=== PATIENT | male | born 1995 | race African-American/Black ===

== ENCOUNTER → 2019-10-27 | Outpatient (CLI) | payer OTHER | END | disposition home or self-care (01) | LOC: Rad HDHVI 14:41 | PROVIDERS: ATTEND Internal Medicine | DX: I50.9 Heart failure, unspecified (principal); I40.1 Isolated myocarditis; I42.9 Cardiomyopathy, unspecified | CPT/HCPCS: 93306 ==

== ENCOUNTER 2019-11-15 09:33 | Emergency (ER) | payer OTHER ==
[~2019-11-15] VITALS: Ht 185.4 cm; Wt 76.2 kg
[2019-11-15] MEDS ORDERED: SODIUM CHLORIDE 0.9% 1,000 ML IV ONE (09:50)
[2019-11-15] MEDS ORDERED: ASPirin 81 mg TAB PO ONE (10:00)
[2019-11-15 10:06] VITALS: BP 123/82
[2019-11-15 10:21] LABS: Basophils # (auto) 0 uL; Basophils % (auto) 0.5 % (0.0-2.0); Eosinophils # (auto) 0 uL; Eosinophils % (auto) 0.3 % (0.0-7.0); Hematocrit 41.7 % (41.0-53.0); Hemoglobin 14.1 g/dL (13.5-17.5); Lymphocytes # (auto) 1.8 uL; Mean Corpuscular Hemoglobin 30.6 pg (28.0-32.0); Mean Corpuscular Hgb Conc. 33.8 g/dL (32.0-36.0); Mean Corpuscular Volume 90.5 fL (80.0-100.0); Monocytes # (auto) 1.5 uL; Monocytes % (auto) 17.9 % (0.0-12.0); Neutrophils % (auto) 59.3 % (37.0-80.0); Platelet Count (auto) 206 10^3/uL (140-450); Red Blood Cells 4.61 10^6/uL (4.5-5.90); Red Cell Distribution Width 14.2 % (11.8-14.3); White Blood Cell 8.4 10^3/uL (4.4-10.8)
[2019-11-15 10:30] LABS: Albumin 3.6 g/dL (3.4-5.0); Anion Gap 4 (5-15); Blood Urea Nitrogen 8 mg/dL (7-18); Calcium 9.1 mg/dL (8.5-10.1); Carbon Dioxide 29 mmol/L (21-32); Chloride 105 mmol/L (98-107); Glucose 80 mg/dL (74-106); Sodium 138 mmol/L (136-145)
[2019-11-15 10:36] LABS: Alanine Aminotransferase 25 U/L (16-61); Alkaline Phosphatase 85 U/L (45-117); Aspartate Aminotransferase 14 U/L (15-37); BUN/Creatinine Ratio 8.9; GFR African American 136 mL/min; GFR Non-African American 112 mL/min; Total Protein 7.4 g/dL (6.4-8.2)
[2019-11-15 11:20] LABS: Alcohol, Urine < 3.0 mg/dL (0-5); Amphetamine Screen, Urine NEGATIVE (NEGATIVE); Barbiturate Scree,Urine NEGATIVE (NEGATIVE); Benzodiazephine Screen, Urine NEGATIVE (NEGATIVE); Cannabinoid Screen, Urine NEGATIVE (NEGATIVE); Cocaine Screen, Urine NEGATIVE (NEGATIVE); Opiate Scree,Urine NEGATIVE (NEGATIVE); Phencyclidine Screen, Urine NEGATIVE (NEGATIVE)
== END 2019-11-15 11:22 | disposition home or self-care (01) ==
LOC: ER 09:33
DX: I50.9 Heart failure, unspecified (principal); F41.9 Anxiety disorder, unspecified; I25.2 Old myocardial infarction
CPT/HCPCS: 36415; 71045; 80053; 80307; 84484; 85025; 93005; 99285; J7030

== ENCOUNTER 2019-11-29 20:23 | Inpatient (IN) | payer OTHER, MEDICAID ==
[~2019-11-29] VITALS: Ht 185.4 cm; Wt 73.7 kg
[2019-11-29 21:08] LABS: Eosinophils # (auto) 0 uL; Lymphocytes # (auto) 1.4 uL
[2019-11-29 21:10] LABS: Basophils # (auto) 0.1 uL; Basophils % (auto) 0.4 % (0.0-2.0); Eosinophils % (auto) 0.2 % (0.0-7.0); Hematocrit 37.7 % (41.0-53.0); Hemoglobin 12.9 g/dL (13.5-17.5); Lymphocytes % (auto) 10.2 % (10.0-50.0); Mean Corpuscular Hemoglobin 30.7 pg (28.0-32.0); Mean Corpuscular Hgb Conc. 34.2 g/dL (32.0-36.0); Mean Corpuscular Volume 89.8 fL (80.0-100.0); Monocytes # (auto) 1.4 uL; Monocytes % (auto) 10.5 % (0.0-12.0); Neutrophils # (auto) 10.6 uL; Neutrophils % (auto) 78.7 % (37.0-80.0); Platelet Count (auto) 465 10^3/uL (140-450); Red Cell Distribution Width 14.4 % (11.8-14.3); White Blood Cell 13.5 10^3/uL (4.4-10.8)
[2019-11-29] MEDS ORDERED: MORPHINE SULFATE 4 MG/ML SYR/VIAL IV ONE (21:15)
[2019-11-29] MEDS ORDERED: ONDANSETRON HCL 4 MG/2 ML VIAL IV ONE (21:15)
[2019-11-29 21:24] LABS: Albumin 2.9 g/dL (3.4-5.0); BUN/Creatinine Ratio 16.1; Calcium 9.3 mg/dL (8.5-10.1); Potassium 4.3 mmol/L (3.5-5.1)
[2019-11-29 21:28] LABS: Bilirubin, Total 0.3 mg/dL (0.2-1.0); Total Protein 8.3 g/dL (6.4-8.2)
[2019-11-29] MEDS ORDERED: ALBUTEROL SULF 2.5 MG/0.5ML(0.5%) NEB SOLN NEB ONE (21:45)
[2019-11-29] MEDS ORDERED: IPRATROPIUM BROM 0.5 MG/2.5ML INH SOL NEB ONE (21:45)
[2019-11-29 22:20] LABS: Urine Bacteria NONE SEEN /hpf (None Seen); Urine Blood Negative /uL (Negative); Urine Mucus FEW (None Seen); Urine Specific Gravity 1.043 (1.001-1.035); Urine WBC 2 /hpf (0 - 3)
[2019-11-29] MEDS ORDERED: HYDROmorphone HCL 2 MG/ML VL IV ONE (23:00)
[2019-11-30] VITALS (74 sets, daily range): BP systolic 82–147; BP diastolic 43–88
[2019-11-30] MEDS ORDERED: PROPOFOL 100 ML IV ONE (03:31)
[2019-11-30] MEDS: PROPOFOL 100 ML IV SCH ×3 (03:32→17:49)
[2019-11-30] MEDS: MIDAZOLAM DRIP 50 mg/50mL 50 ML IV SCH ×4 (03:43→22:00)
[2019-11-30] MEDS ORDERED: MIDAZOLAM DRIP 50 mg/50mL 50 ML IV ONE (03:43)
[2019-11-30] MEDS ORDERED: ALBUTEROL SULF 2.5 MG/0.5ML(0.5%) NEB SOLN NEB PRN (04:00)
[2019-11-30] MEDS ORDERED: IPRATROPIUM BROM 0.5 MG/2.5ML INH SOL NEB PRN (04:00)
[2019-11-30] MEDS ORDERED: ONDANSETRON HCL 4 MG/2 ML VIAL IV PRN (04:30)
[2019-11-30] MEDS ORDERED: MORPHINE SULFATE 4 MG/ML SYR/VIAL IV PRN (04:30)
[2019-11-30] MEDS ORDERED: DOCUSATE SOD 100 MG CAP PO PRN (04:30)
[2019-11-30] MEDS ORDERED: ETOMIDATE (2MG/ML) 20ML VIAL IV ONE (06:00)
[2019-11-30] MEDS: NAPROXEN 500 MG TAB NG SCH ×2 (06:00→13:01)
[2019-11-30] MEDS ORDERED: SUCCINYLCHOLINE CHLORIDE 20 MG/ML 10ML VIAL IV ONE (06:00)
[2019-11-30] MEDS: D5W/SOD CHL 0.45% 1,000 ML IV SCH ×2 (07:04→21:09)
--- NOTE | 2019-11-30 08:00 | NUR ---
Admit to ICU from ER on vent FRED ALadmitted to ICU via kole on property assessment monitor, intubated and being bagged by Respiratory Therapist. Patient transfered to bed 110, connected to mechanical ventilator by therapist, CASEY at bedside. Patient connected to ICU monitoring, weighed by bedscale, oriented to Hilda Hill primary RN, unit, Patiently lightly sedated on versed and prop. Lines: Right forearm 20 g infusing propofol Left ac 18g infusing fluids Left Ij in place pending cxr results for placement verification. Pupils equal and reactive Positive gag reflex Tolerating ventiltor well, unlabored even breaths, lungs clear. Abd soft. Active bowel sounds Soliz draining yellow urine with sediment noted. Skin intact, Optifoam in place as prevenative. Scds in place. See physical assessment/ interventions.
--- NOTE | 2019-11-30 08:00 | NUR ---
Respiratory note: PT TRANSPORTED TO ICU, VENTILATED VIA AMBU BAG, TRANSPORT WENT WITHOUT INCIDENT. PT PLACED BACK ON VENT #V9, PLUGGED INTO A RED OUTLET AND PROPER O2 SOURCE WITH AMBU BAG/MASK AT BEDSIDE. ALARMS VERIFIED AND AUDIBLE. NO VENT CHANGES ORDERED AT THIS TIME. RN AT BEDSIDE.
[2019-11-30 09:18] LABS: Basophils # (auto) 0 uL; Basophils % (auto) 0.2 % (0.0-2.0); Eosinophils # (auto) 0 uL; Eosinophils % (auto) 0.2 % (0.0-7.0); Hematocrit 32.4 % (41.0-53.0); Hemoglobin 10.6 g/dL (13.5-17.5); Lymphocytes # (auto) 1.6 uL; Lymphocytes % (auto) 12.4 % (10.0-50.0); Mean Corpuscular Hemoglobin 29.1 pg (28.0-32.0); Mean Corpuscular Hgb Conc. 32.8 g/dL (32.0-36.0); Mean Corpuscular Volume 88.8 fL (80.0-100.0); Monocytes # (auto) 1.4 uL; Monocytes % (auto) 10.7 % (0.0-12.0); Neutrophils % (auto) 76.5 % (37.0-80.0); Platelet Count (auto) 424 10^3/uL (140-450); Red Blood Cells 3.65 10^6/uL (4.5-5.90); Red Cell Distribution Width 14.9 % (11.8-14.3); White Blood Cell 13.1 10^3/uL (4.4-10.8)
--- NOTE | 2019-11-30 09:20 | NUR ---
CXR REPORT - Report stating "Nonspecific lucency at the right supraclavicular soft tissues may be technical, though subcutaneous emphysema can have a similar appearance". Palpation done throughout upper and lateral chest. No subcutaneous emphysema noted. Will continue to monitor.
[2019-11-30 09:29] LABS: Calcium 9.1 mg/dL (8.5-10.1)
--- NOTE | 2019-11-30 09:45 | NUR ---
DIRECTOR GOVERNMENT CONSULT/ CENTRAL LINE UPDATE DIRECTOR GOVERNMENT AWARE OF CONSULT. DR. SHAH UPDATED ON PATIENTS STATUS AND CXR RESULTS WITH CENTRAL LINE PLACEMENT. STATING HE WILL BE IN SHORTLY.
[2019-11-30] MEDS: COLCHICINE 0.6 MG CAP NG SCH ×2 (10:00→22:00)
--- NOTE | 2019-11-30 10:38 | NUR ---
FOOTWEAR PRODUCTION MACHINE OPERATOR AT BEDSIDE DR. KELLY AT BEDSIDE. UPDATED ON PATIENTS STATUS. NEW ORDERS IN PLACE.
[2019-11-30] MEDS ORDERED: SODIUM CHLORIDE 0.9% 500 ML IV ONE (10:45)
--- NOTE | 2019-11-30 10:45 | NUR ---
WOUND CARE NOTE: IN TO SEE PATIENT AT THIS TIME PER WOUND CARE CONSULT REQUEST. PATIENT ADDED TO SKIN INTEGRITY MONITORING D/T LOW RAFA SCORE/INTUBATION STATUS. PATIENT RECENTLY ADMITTED TO [facility] WITH DIAGNOSIS OF SUSPECTED RECURRENT MYOCARDITIS, PERICARDITIS, ACUTE RESPIRATORY FAILURE. CURRENT RAFA SCORE IS 10. SKIN/WOUND CARE PLAN IMPLEMENTED. PATIENT IS WOUND FREE AT THIS TIME. RECOMMEND: FREQUENT TURN SCHEDULE Q 2 HOURS, PRN CONDITION PERMITS,WITH PRESSURE REDISTRIBUTION USING PILLOWS/WEDGES, BID/PRN APPLICATION WITH MOISTURE BARRIER CREAM, OPTIFOAM GENTLE SACRAL DRESSING, DIETARY CONSULT FOR LOW RAFA, SKIN/WOUND CARE PLAN, CONTINUED MONITORING BY WOUND CARE TEAM.
--- NOTE | 2019-11-30 10:55 | NUR ---
head of academic technology at bedside.
--- NOTE | 2019-11-30 11:05 | NUR ---
Colcrys not available in liquid form. Per Sarah Rx, ok to open capsule and administer via OG.
[2019-11-30] MEDS: PANTOPRAZOLE 40 MG/10 ML VIAL INJ IV SCH ×2 (11:08→22:00)
[2019-11-30] MEDS: levoFLOXacin 750MG 150 ML IV SCH (11:08)
[2019-11-30] MEDS: VASOPRESSIN 50 UNITS in D5W 5% 247.5 ML IV SCH (12:30)
[2019-11-30] MEDS ORDERED: ENOXAPARIN SOD 40 MG/0.4 ML SYRINGE SC ONE (13:00)
[2019-11-30] MEDS ORDERED: FUROSEMIDE 20 MG/2 ML VIAL IV ONE (13:15)
--- NOTE | 2019-11-30 13:46 | NUR ---
CENTRAL LINE PLACED BY MD AT BEDSIDE. CXR PENDING. LEFT IJ CENTRAL LINE REMOVED. PRESSURE APPLIED. PT TOLERATED WELL.
[2019-11-30 13:51] LABS: Basophils # (auto) 0 uL; Basophils % (auto) 0.2 % (0.0-2.0); Eosinophils # (auto) 0 uL; Eosinophils % (auto) 0.4 % (0.0-7.0); Hematocrit 29.9 % (41.0-53.0); Hemoglobin 10.1 g/dL (13.5-17.5); Lymphocytes # (auto) 1.7 uL; Lymphocytes % (auto) 14.7 % (10.0-50.0); Mean Corpuscular Hemoglobin 29.9 pg (28.0-32.0); Mean Corpuscular Hgb Conc. 33.8 g/dL (32.0-36.0); Mean Corpuscular Volume 88.4 fL (80.0-100.0); Monocytes # (auto) 1.4 uL; Neutrophils # (auto) 8.6 uL; Neutrophils % (auto) 72.7 % (37.0-80.0); Nucleated Red Blood Cells % 0.1 %; Platelet Count (auto) 387 10^3/uL (140-450); Red Blood Cells 3.39 10^6/uL (4.5-5.90); Red Cell Distribution Width 14.4 % (11.8-14.3); White Blood Cell 11.8 10^3/uL (4.4-10.8)
--- NOTE | 2019-11-30 14:00 | NUR ---
HOSPITALIST AT BEDSIDE MD UPDATED ON PATIENTS STATUS. NEW ORDERS IN PLACE.
[2019-11-30 14:23] LABS: Amphetamine Screen, Urine NEGATIVE (NEGATIVE); Barbiturate Scree,Urine NEGATIVE (NEGATIVE); Benzodiazephine Screen, Urine POSITIVE (NEGATIVE); Cannabinoid Screen, Urine NEGATIVE (NEGATIVE); Cocaine Screen, Urine NEGATIVE (NEGATIVE); Opiate Scree,Urine POSITIVE (NEGATIVE); Phencyclidine Screen, Urine NEGATIVE (NEGATIVE)
[2019-11-30] MEDS: ALBUTEROL SULF 2.5 MG/0.5ML(0.5%) NEB SOLN NEB SCH ×3 (14:26→22:12)
[2019-11-30] MEDS: IPRATROPIUM BROM 0.5 MG/2.5ML INH SOL NEB SCH ×3 (14:26→22:12)
[2019-11-30] MEDS ORDERED: methylPREDNISolone SOD SUCC 125 MG/2 ML VL IV ONE (15:30)
--- NOTE | 2019-11-30 17:00 | NUR ---
ELIMINATION REPORTED PER IVAN SCOTT, PATIENTS LAST BM WAS BEFORE ADMISSION.
[2019-11-30] MEDS: FUROSEMIDE 20 MG/2 ML VIAL IV SCH (17:48)
--- NOTE | 2019-11-30 19:20 | NUR ---
Report given to noc nurse Updated on plan of care. Patient continues vented/ sedated/ pressor. VSS.
--- NOTE | 2019-11-30 19:56 | NUR ---
ADMITTED WITH CHEST PAIN AND DYSPNEA. POSITIVE TROPONINS. INTUBATED IN ER. SEDATION WITH VERSED AND DIPRIVAN. HYPOTENSION: VASOPRESSIN LOW DOSE. NSR - ST WITHOUT ECTOPY. ETT TO VENTILATOR. OVERBREATHING THE VENTILATOR. MAINTENANCE FLUID AT 60CC/HR. GLUCERNA STARTED AT 20CC/HR. THROUGH AN ORAL NGT. RIJ TRIPLE LUMEN CATHETER WITH CLEAN DRY DRESSING. SOLUMEDROL BEING GIVEN FOR HIS PERICARDITIS. WOUND FREE.
[2019-11-30] MEDS: Glucerna 1.2 Cal 1Liter BOTTLE GT SCH (20:10)
[2019-11-30] MEDS: CARVEDILOL 3.125 MG TAB NG SCH (22:00)
[2019-11-30] MEDS: methylPREDNISolone SOD SUCC 40 MG/ML VL IV SCH (22:00)
--- NOTE | 2019-11-30 22:00 | NUR ---
REPOSITIONED TO BACK. ORAL: LARGE AMOUNT OF CLEAR SECRETIONS. ORAL CARE DONE. CENTRAL LINE DRESSING CHANGED. SITE CLEANED WITH CHLOROPREP AND REDRESSED. OVERBREATHING THE VENTILATOR. NOTHING SUCTIONED FROM THE ETT. WILL OPEN EYES OCCASIONALLY. ALL PULSES ARE PALPABLE. NSR WITHOUT ECTOPY.
[2019-12-01] VITALS (109 sets, daily range): BP systolic 88–122; BP diastolic 40–83
--- NOTE | 2019-12-01 | NUR ---
WAKES UP BRIEFLY AND GOES BACK TO SLEEP. ORAL CARE DONE. NOTHING SUCTIONED FROM THE ETT. LUNGS CLEAR. 15CC RESIDUAL FROM THE OGT. ABDOMEN SOFT. COLLINS IN PLACE DRAINING YELLOW LIQUID WITH A LARGE AMOUNT OF CLOUDY WHITE SEDIMENT. NO EDEMA. ALL PULSES PALPABLE. NSR WITHOUT ECTOPY. COREG DID NOT CHANGE THE HEART RATE OR BP VERY MUCH.
--- NOTE | 2019-12-01 02:00 | NUR ---
NO NEW CHANGES. SUCTIONED THE ETT. NEVER GET ANY RETURN OF SECRETIONS. ORAL CARE DONE. URINE REMAINS EXTREMELY CLOUDY.
[2019-12-01] MEDS: ALBUTEROL SULF 2.5 MG/0.5ML(0.5%) NEB SOLN NEB SCH ×6 (02:07→22:48)
[2019-12-01] MEDS: IPRATROPIUM BROM 0.5 MG/2.5ML INH SOL NEB SCH ×6 (02:07→22:47)
--- NOTE | 2019-12-01 02:30 | NUR ---
CHG BATH. COMPLETE LINEN CHANGE
[2019-12-01 03:54] LABS: Basophils # (auto) 0 uL; Basophils % (auto) 0.2 % (0.0-2.0); Eosinophils # (auto) 0 uL; Hematocrit 29.5 % (41.0-53.0); Hemoglobin 10.2 g/dL (13.5-17.5); Lymphocytes # (auto) 0.7 uL; Lymphocytes % (auto) 7.4 % (10.0-50.0); Mean Corpuscular Hemoglobin 30.6 pg (28.0-32.0); Mean Corpuscular Hgb Conc. 34.7 g/dL (32.0-36.0); Mean Corpuscular Volume 88.1 fL (80.0-100.0); Monocytes # (auto) 0.2 uL; Neutrophils # (auto) 8.7 uL; Neutrophils % (auto) 90.4 % (37.0-80.0); Platelet Count (auto) 371 10^3/uL (140-450); Red Blood Cells 3.35 10^6/uL (4.5-5.90); Red Cell Distribution Width 14.7 % (11.8-14.3); White Blood Cell 9.6 10^3/uL (4.4-10.8)
[2019-12-01] MEDS: MIDAZOLAM DRIP 50 mg/50mL 50 ML IV SCH ×2 (04:00→16:14)
--- NOTE | 2019-12-01 04:00 | NUR ---
ETT SUCTIONED, NO SECRETIONS. ORAL CARE DONE. REPOSITIONED. NSR WITHOUT ECTOPY. SBP STABLE. DECREASING VERSED.
[2019-12-01 04:18] LABS: Albumin 2.4 g/dL (3.4-5.0); Anion Gap 6 (5-15); Blood Urea Nitrogen 18 mg/dL (7-18); Calcium 9.6 mg/dL (8.5-10.1); Carbon Dioxide 29 mmol/L (21-32); Chloride 99 mmol/L (98-107); Glucose 164 mg/dL (74-106); Magnesium 1.9 mg/dL (1.6-2.6); Potassium 4.5 mmol/L (3.5-5.1); Sodium 134 mmol/L (136-145)
[2019-12-01 04:21] LABS: INR 1.37 (0.9-1.15); Partial Thromboplastin Time 43.4 sec (23.64-32.05)
[2019-12-01 04:26] LABS: Alanine Aminotransferase 30 U/L (16-61); Alkaline Phosphatase 91 U/L (45-117); Aspartate Aminotransferase 26 U/L (15-37); BUN/Creatinine Ratio 20.5; Bilirubin, Total 0.2 mg/dL (0.2-1.0); Creatine Kinase IFCC 50 U/L (39-308); GFR African American 139 mL/min; GFR Non-African American 115 mL/min; Phosphorus 4.4 mg/dL (2.5-4.90); Total Protein 7.4 g/dL (6.4-8.2)
[2019-12-01 04:37] LABS: CRP High Sensitivity > 19 mg/dL (< 0.3)
[2019-12-01] MEDS: methylPREDNISolone SOD SUCC 40 MG/ML VL IV SCH ×2 (06:00→22:36)
[2019-12-01] MEDS: FUROSEMIDE 20 MG/2 ML VIAL IV SCH ×2 (06:00→18:00)
--- NOTE | 2019-12-01 06:52 | NUR ---
Respiratory note: RECEIVED PATIENT ON V9 ESPRIT VENT ORALLY INTUBATED WITH A 7.5 ETT SECURED VIA KENNETH AT THE 24CM MARKING AT THE LIP, AND MECHANICALLY VENTILATED WITH THE CHARTED SETTINGS. SPO2 100%, LUNG SOUNDS CLEAR T/O, SCANT AMOUNT OF THIN CLEAR SECRETIONS WHEN SUCTIONED. SKIN IS WARM/DRY TO THE TOUCH AND IS INTACT NEAR KENNETH SITE. THERE IS AN OGT IN PLACE AND SECURED TO THE TT, A TRIPLE LUMEN CENTRAL LINE IS PLACED IN THE RIGHT IJ; NO OTHER ADVANCE ACCESS LINES NOTED. THERE IS NO NOTED EDEMA T/O. NO NEW AM CXR TO ASSESS. PATIENT IS UNRESPONSIVE TO BOTH VERBAL/TACTILE STIMULI AND IS SEDATED ON VERSED AND PROPOFOL DRIPS. HE IS RESTING COMFORTABLY AND TOLERATING VENT WELL, NO CHANGES MADE. VENT PLUGGED INTO RED OUTLET AND ALL ALARMS ARE SET AND AUDIBLE. WILL CONTINUE TO ASSESS PATIENT WELL VENTILATOR FUNCTION. [employer] Everytime RUN INLINE.
[2019-12-01] MEDS: PANTOPRAZOLE 40 MG/10 ML VIAL INJ IV SCH ×2 (09:11→22:36)
[2019-12-01] MEDS: levoFLOXacin 750MG 150 ML IV SCH (09:11)
[2019-12-01] MEDS: ENOXAPARIN SOD 40 MG/0.4 ML SYRINGE SC SCH (09:11)
[2019-12-01] MEDS: VASOPRESSIN 50 UNITS in D5W 5% 247.5 ML IV SCH ×2 (09:12→20:00)
[2019-12-01] MEDS: CARVEDILOL 3.125 MG TAB NG SCH ×2 (09:12→22:37)
[2019-12-01] MEDS: COLCHICINE 0.6 MG CAP NG SCH ×2 (09:12→22:36)
[2019-12-01] MEDS: PROPOFOL 100 ML IV SCH ×4 (09:23→21:45)
[2019-12-01 09:56] LABS: Hepatitis B Surface Antigen Negative (Negative); Hepatitis C Antibody Negative (Negative)
--- NOTE | 2019-12-01 10:28 | NUR ---
PATIENT LIGHTLY- MODERATELY SEDATED. PT NOTED TO OPEN EYES AND MOVE EXTREMITIES DURING CARES. SEE EMAR. Addendum: 12/01/19 at 1031 by Hilda Hill RN Amended: Links added.
--- NOTE | 2019-12-01 11:57 | NUR ---
DR. KELLY AT BEDSIDE MD UPDATED ON PATIENTS STATUS. PER AWA ELLIOTT IN HIS PERSPECTIVE TO EXTUBATE PER PULMONARY.
--- NOTE | 2019-12-01 12:19 | NUR ---
NUTRITION ASSESSMENT NOTES Please refer to link notes of nutrition screen form filed under the intervention section of the plan of care for further details. Est. Energy Needs: 1092-4668 kcal (25-30 kcal/kg BW). Est. Protein Needs: 77-92 gms/day (1.0-1.2 gms/kg BW). Will continue to monitor pertinent labs and reassess nutrient need prn Addendum: 12/01/19 at [address] Amended: Links added.
[2019-12-01] MEDS ORDERED: Glucerna 1.2 Cal 1Liter BOTTLE GT SCH (13:00)
--- NOTE | 2019-12-01 13:00 | NUR ---
FAMILY AT BEDSIDE MOTHER OF TYLER LOVE AT BEDSIDE UPDATED ON PATIENTS STATUS. QUESTIONS AND CONCERNS ADDRESSED.
--- NOTE | 2019-12-01 13:15 | NUR ---
OUTPATIENT COOKER CASING DR. ROSARIO CONTACTED FAMILY AT BEDSIDE REQUESTING DR. ROSARIO TO BE AWARE OF ADMISSION. MSG LEFT WITH OFFICE.
--- NOTE | 2019-12-01 14:20 | NUR ---
RESIDENTIAL PROGRAM WORKER AZIZA MAC AT BEDSIDE. SEE NEW ORDERS.
--- NOTE | 2019-12-01 15:00 | NUR ---
COMMUNICATION/ DR. RASHID MIKE AT BEDSIDE CLARIFYING INSURANCE PROVIDER. DR. TURCIOS AWARE. DR. MIKE TO SEE PATIENT AT THIS TIME.
--- NOTE | 2019-12-01 15:52 | NUR ---
TUBE FEEDINGS TOLERATED WELL. GLUCERNA INCREASED TO 50ML/HR VIA OG. NO GASTRIC RESIDUAL NOTED.
[2019-12-01] MEDS: ERTAPENEM SOD INJ 1 GM in SODIUM CHL 0.9% 50 ML IV SCH (16:15)
[2019-12-01] MEDS: Glucerna 1.2 Cal 1Liter BOTTLE GT SCH (16:16)
--- NOTE | 2019-12-01 17:07 | NUR ---
RESTLESS PATIENT MOVING UPPER EXTREMITIES WITH RR NOTED MIDS 30'S. SEDATION INCREASED FOR COMFORT PATIENT IS NOTED TO BECOME RESTLESS.
[2019-12-01] MEDS: MORPHINE SULF INJ 2 MG/ML SYRINGE 1ML IV PRN (17:17)
--- NOTE | 2019-12-01 17:17 | NUR ---
PAIN PATIENT OPENING EYES, MOVING UPPER EXT, VS CHANGES, RR CONTINUES IN 30'S, HR ST 110'S. PATIENT ASKED IF HE IS HAVING PAIN AND NODDED HEAD, FACIAL GRIMACING NOTED. PRN ADMINISTERED ORDERED.
[2019-12-01] MEDS ORDERED: DEXTROSE (50%) 50ML SYRG IV PRN (18:45)
--- NOTE | 2019-12-01 19:48 | NUR ---
ADMITTED ON 11/29/2019 WITH TACHYPNEA AND LOW O2 SATURATION IN ER. INTUBATED IN ER. ELEVATED TROPONINS. RECENT DIAGNOSIS OF MYOCARDITIS AT [facility]. NOTED ECHOCARDIOGRAM RESULT. COLLINS IN PLACE DRAINING CLEAR YELLOW LIQUID TO DOWN DRAIN BAG. RADHA. ORALLY INTUBATED. ETT TO VENTILATOR. ABDOMEN SOFT. NO BM SINCE ADMISSION DATE. NUTRITION: STARTED HIM ON GLUCERNA YESTERDAY. RATE IS NOW UP TO 50CC/HR. HAS A RIJ TRIPLE LUMEN CATHETER. SITE OF TLC SHOWS NO REDNESS OR DRNG. DISCONTINUED MAINTENANCE FLUIDS TODAY. INCREASED THE LASIX TO BID TODAY. CHANGED ANTIBIOTICS TODAY. MENTATION : MOVING IN BED, SLIGHTLY RESTLESS. INCREASED THE VERSED DRIP. SBP WAS 88 SYSTOLIC AFTER SEVERAL ATTEMPTS. RESUMED THE VASOPRESSIN.
[2019-12-01] MEDS: ACCU-CHEK COMFORT CURVE STRIP VI SCH (22:00)
[2019-12-01] MEDS: InsuLIN REG 1unit/0.01ml Soln (100units/ml) SC SCH (22:00)
[2019-12-01] MEDS ORDERED: ALLOPURINOL 100 MG TAB PO SCH (22:00)
--- NOTE | 2019-12-01 22:00 | NUR ---
TYLER, THE LIVE IN FRIEND, STATED THAT THE LAST TIME HE WAS ON [place], HE HAD SEVERAL NIGHTMARES AND WAS CONFUSED FOR SEVERAL DAYS. IT'S HER REQUEST THAT WE NOT UTILIZE F[place]. DR LANCASTER WAS HERE. NO NEW ORDERS.ORAL CARE. SUCTIONED ETT. COLLINS DRAINING CLEAR MICHELLE LIQUID.
[2019-12-01] MEDS: ALLOPURINOL 100 MG TAB NG SCH (22:37)
[2019-12-02] VITALS (68 sets, daily range): BP systolic 101–140; BP diastolic 51–80
--- NOTE | 2019-12-02 | NUR ---
VSS. ETT TO VENTILATOR. NO NEW CHANGES. RR GREATER THAN THAN AC RATE OF 14. NSR WITHOUT ECTOPY. ORAL CARE DONE.
[2019-12-02] MEDS: ALBUTEROL SULF 2.5 MG/0.5ML(0.5%) NEB SOLN NEB SCH ×6 (02:12→22:22)
[2019-12-02] MEDS: IPRATROPIUM BROM 0.5 MG/2.5ML INH SOL NEB SCH ×6 (02:12→22:22)
--- NOTE | 2019-12-02 03:24 | NUR ---
AM LABS DRAWN
--- NOTE | 2019-12-02 04:00 | NUR ---
CHG BATH. COMPLETE LINEN CHANGE. NO CHANGE IN SYMPTOMS, SKIN, HEART RHYTHM OR BLOOD PRESSURE.
[2019-12-02 04:04] LABS: Basophils # (auto) 0 10 ^3/uL (0-0.2); Basophils % (auto) 0.1 % (0.0-2.0); Eosinophils # (auto) 0 10 ^3/uL (0-0.8); Hemoglobin 10.7 g/dL (13.5-17.5); Lymphocytes # (auto) 0.9 10 ^3/uL (0.4-5.4); Lymphocytes % (auto) 4.5 % (10.0-50.0); Mean Corpuscular Hemoglobin 29.8 pg (28.0-32.0); Mean Corpuscular Hgb Conc. 33.5 g/dL (32.0-36.0); Mean Corpuscular Volume 88.8 fL (80.0-100.0); Monocytes # (auto) 1.3 10 ^3/uL (0-1.3); Monocytes % (auto) 6.7 % (0.0-12.0); Neutrophils % (auto) 88.7 % (37.0-80.0); Platelet Count (auto) 435 10^3/uL (140-450); Red Cell Distribution Width 15.2 % (11.8-14.3); White Blood Cell 19.2 10^3/uL (4.4-10.8)
[2019-12-02 04:23] LABS: BUN/Creatinine Ratio 28.7; Potassium 4.8 mmol/L (3.5-5.1)
[2019-12-02] MEDS: PROPOFOL 100 ML IV SCH (05:00)
[2019-12-02] MEDS: MIDAZOLAM DRIP 50 mg/50mL 50 ML IV SCH (05:00)
[2019-12-02] MEDS: FUROSEMIDE 20 MG/2 ML VIAL IV SCH ×2 (06:06→18:03)
[2019-12-02] MEDS: ACCU-CHEK COMFORT CURVE STRIP VI SCH ×4 (06:07→21:46)
[2019-12-02] MEDS: InsuLIN REG 1unit/0.01ml Soln (100units/ml) SC SCH ×4 (06:12→21:45)
--- NOTE | 2019-12-02 06:55 | NUR ---
Respiratory note: RECEIVED PATIENT ON V9 ESPRIT VENT ORALLY INTUBATED WITH A 7.5 ETT SECURED VIA KENNETH AT THE 24CM MARKING AT THE LIP, AND MECHANICALLY VENTILATED WITH THE CHARTED SETTINGS. SPO2 100%, LUNG SOUNDS CLEAR T/O, SCANT AMOUNT OF THIN CLEAR SECRETIONS WHEN SUCTIONED. SKIN IS WARM/DRY TO THE TOUCH AND IS INTACT NEAR KENNETH SITE. THERE IS AN OGT IN PLACE AND SECURED TO THE ETT, A TRIPLE LUMEN CENTRAL LINE IS PLACED IN THE RIGHT IJ; NO OTHER ADVANCE ACCESS LINES NOTED. THERE IS NO NOTED EDEMA T/O. NO NEW AM CXR TO ASSESS. PATIENT IS RESPONSIVE TO BOTH VERBAL/TACTILE STIMULI AND IS LIGHTLY SEDATED ON VERSED AND PROPOFOL DRIPS CPAP IS TO BE TRIALED TODAY. HE IS RESTING COMFORTABLY AND TOLERATING VENT WELL, NO CHANGES MADE. VENT PLUGGED INTO RED OUTLET AND ALL ALARMS ARE SET AND AUDIBLE. WILL CONTINUE TO ASSESS PATIENT WELL VENTILATOR FUNCTION. MED-NEB RUN INLINE. POC IS TO WEAN OFF ALL SEDATION AND CPAP. WILL COORDINATED WITH AM RN.
--- NOTE | 2019-12-02 09:00 | NUR ---
DR. LANCASTER UPDATED ON PT STATUS, RECEIVED CPAP ORDERS, RT MADE AWARE.
--- NOTE | 2019-12-02 09:30 | NUR ---
FAMILY AT THE BEDSIDE PTS GIRLFRIEND WAS UPDATED ON PT PLAN OF CARE, QUESTIONS AND CONCERNS WERE ADDRESSED
[2019-12-02] MEDS: ENOXAPARIN SOD 40 MG/0.4 ML SYRINGE SC SCH (09:55)
[2019-12-02] MEDS: PANTOPRAZOLE 40 MG/10 ML VIAL INJ IV SCH (09:55)
[2019-12-02] MEDS: methylPREDNISolone SOD SUCC 40 MG/ML VL IV SCH ×2 (09:56→21:49)
[2019-12-02] MEDS: COLCHICINE 0.6 MG CAP NG SCH ×2 (09:57→21:51)
[2019-12-02] MEDS: CARVEDILOL 3.125 MG TAB NG SCH ×2 (09:57→21:51)
[2019-12-02] MEDS: ALLOPURINOL 100 MG TAB NG SCH ×2 (09:57→21:50)
[2019-12-02] MEDS: ERTAPENEM SOD INJ 1 GM in SODIUM CHL 0.9% 50 ML IV SCH (09:58)
--- NOTE | 2019-12-02 10:59 | NUR ---
Respiratory note: PATIENT PLACED ON CPAP TRIAL AT THIS TIME HE IS AWAKE, ALERT, AND FOLLOWING COMMANDS. HE IS TOLERATING WELL AT THIS TIME WITH THE FOLLOWING SETTINGS: PS 7, PEEP 5 CURRENT VITALS: HR: 77 RR: 15 VT: 542 SPO2: 100% BP: 111/64 RN HILDA AWARE OF VENT CHANGE. WILL CONTINUE TO MONITOR PATIENT CLOSELY.
[2019-12-02] MEDS ORDERED: EPINEPHrine HCL 0.5 ML NEB NEB PRN (12:45)
--- NOTE | 2019-12-02 13:04 | NUR ---
Respiratory note: PATIENT EXTUBATED AT 1255 POST POSITIVE CPAP TRIAL AND PER DR. LANCASTER'S TELEPHONE ORDER. HE WAS PLACED ON 30% COOL AEROSOL MASK AND NO STRIDOR WAS HEARD. PATIENT SLIGHTLY TACHYPNEIC BREATHING 28 BPM, BUT SAYS HE DOES NOT FEEL SOB OF ANY DIFF BREATHING. WILL CONTINUE TO MONITOR PATIENT CLOSELY. AMRICARMEN STEVENS MADE AWARE OF EXTUBATION AND PATIENTS CURRENT CONDITION.
--- NOTE | 2019-12-02 14:30 | NUR ---
PT WAS PLACED ON 2L NC
--- NOTE | 2019-12-02 14:40 | NUR ---
DR. TURCIOS AT BEDSIDE Addendum: 12/02/19 at 1649 by MELINDA ZAVALA RN RN DR. TURCIOS AT [facility] ACTUAL TIME [id number]
--- NOTE | 2019-12-02 14:48 | NUR ---
ESTEFANIA BENEFITS MANAGER AT BEDSIDE RECEIVED ORDERS TO DOWNGRADE TO TELE
--- NOTE | 2019-12-02 16:00 | NUR ---
BLADDER TRAINING BLADDER TRAINING IN PROGRESS
--- NOTE | 2019-12-02 16:00 | NUR ---
PT ACTIVITY COMPLETED LINEN CHANGE, PT AMBULATED TO THE TOILET WITH ASSISTANCE
--- NOTE | 2019-12-02 17:32 | NUR ---
PT EXTUBATED PT WAS EXTUBATED ON 1254 BY RT CRUZITO PEARCE AT PT'S BEDSIDE Addendum: 12/02/19 at 1733 by MELINDA ZAVALA RN RN ACTUAL TIME 1255
--- NOTE | 2019-12-02 18:40 | NUR ---
PT URINATED AFTER REMOVAL OF COLLINS PT URINATED 500ML INTO URINAL AT 1840
--- NOTE | 2019-12-02 19:30 | NUR ---
Opening Shift Note Report received from day shift RN. Patient sitting up in bed watching TV. Alert and oriented times four. Full assessment done see interventions. Right IJ TLC, all ports patent. Pt is weak but able to turn self in bed. Ambulates to bathroom with assistance. Urinal at bedside. Nasal cannula in place at 2 lpm. saturations at 100%. Bed locked in lowest position. call light within reach. Pt verbalized understanding to call for assistance.
[2019-12-02] MEDS: ACETAMINOPHEN 325 MG TAB PO PRN (20:41)
--- NOTE | 2019-12-02 21:30 | NUR ---
Pt requesting something to eat so he doesn't get nauseous with his medications. Swallowing checked with ice chips. Pt able to swallow ice chips without any issues.
[2019-12-02] MEDS ORDERED: methylPREDNISolone SOD SUCC 40 MG/ML VL IV ONE (22:00)
[2019-12-02] MEDS ORDERED: MAGNESIUM OXIDE 400 MG TAB PO ONE (22:00)
--- NOTE | 2019-12-02 22:00 | NUR ---
Family Girlfriend, Josselyn visiting at bedside. All questions and concerns addressed at this time.
--- NOTE | 2019-12-02 22:30 | NUR ---
Central Line Dressing Change Right IJ Central line dressing change done with a sterile technique. Cleansed with chloraprep scrub/alcohol bio-patch applied. Occlusive dressing applied. Pt tolerated well.
[2019-12-03] VITALS (7 sets, daily range): BP systolic 113–123; BP diastolic 68–96
--- NOTE | 2019-12-03 | NUR ---
Report given to MARICARMEN Melo to assume care.
--- NOTE | 2019-12-03 00:19 | NUR ---
Telemetry transfer from ICU ALFRED admitted to Telemetry unit after SBAR received. Patient oriented to Kameron cavazos RN, unit, room 217, bed B, and unit policies regarding patient care and visiting hours. Patient now on continuous telemetry monitoring, tele box #36 and telemetry reading on arrival to unit is STach 108. Patient VS taken, weighed by bedscale and encouraged to call if they need something. All questions and concerns addressed, patient verbalized understanding.
[2019-12-03] MEDS: IPRATROPIUM BROM 0.5 MG/2.5ML INH SOL NEB SCH ×6 (02:00→22:00)
[2019-12-03] MEDS: ALBUTEROL SULF 2.5 MG/0.5ML(0.5%) NEB SOLN NEB SCH ×6 (02:00→22:00)
[2019-12-03] MEDS: FUROSEMIDE 20 MG/2 ML VIAL IV SCH (06:35)
[2019-12-03] MEDS: ACCU-CHEK COMFORT CURVE STRIP VI SCH (06:37)
[2019-12-03] MEDS: InsuLIN REG 1unit/0.01ml Soln (100units/ml) SC SCH (06:37)
[2019-12-03] MEDS: MORPHINE SULF INJ 2 MG/ML SYRINGE 1ML IV PRN (06:47)
[2019-12-03 07:08] LABS: Basophils # (auto) 0 10 ^3/uL (0-0.2); Eosinophils # (auto) 0 10 ^3/uL (0-0.8); Hemoglobin 11.9 g/dL (13.5-17.5); Lymphocytes # (auto) 1.3 10 ^3/uL (0.4-5.4); Mean Corpuscular Volume 88.4 fL (80.0-100.0); Monocytes # (auto) 0.8 10 ^3/uL (0-1.3)
[2019-12-03 07:10] LABS: Hematocrit 35.9 % (41.0-53.0); Lymphocytes % (auto) 7.8 % (10.0-50.0); Mean Corpuscular Hemoglobin 29.2 pg (28.0-32.0); Mean Corpuscular Hgb Conc. 33.1 g/dL (32.0-36.0); Monocytes % (auto) 4.4 % (0.0-12.0); Neutrophils # (auto) 15.2 10 ^3/uL (1.6-8.6); Neutrophils % (auto) 87.8 % (37.0-80.0); Platelet Count (auto) 520 10^3/uL (140-450); Red Blood Cells 4.06 10^6/uL (4.5-5.90); White Blood Cell 17.3 10^3/uL (4.4-10.8)
[2019-12-03 07:17] LABS: BUN/Creatinine Ratio 32.1; Calcium 9.6 mg/dL (8.5-10.1); Magnesium 2.5 mg/dL (1.6-2.6); Potassium 4.3 mmol/L (3.5-5.1)
--- NOTE | 2019-12-03 07:52 | NUR ---
Opening Note Assumed pt care from [facility] nurse. Pt is a/ox4 with no s/s of distress or SOB. Pt is currently sitting upright in bed with no complaints at this time. Discussed POC with pt; possibly advancing diet; pt verbalized understanding. Safety measures maintained with call light within reach, bed in lowest position and side rails up. Will continue to monitor for changes.
--- NOTE | 2019-12-03 09:27 | NUR ---
Antibiotic Not Available Ivanz scheduled for 1000 is unavailable in xis. Notified pharmacy staff. per staff, will sent up antibiotic.
[2019-12-03] MEDS: ALLOPURINOL 100 MG TAB NG SCH ×2 (09:33→21:45)
[2019-12-03] MEDS: methylPREDNISolone SOD SUCC 40 MG/ML VL IV SCH ×2 (09:33→21:44)
[2019-12-03] MEDS: COLCHICINE 0.6 MG CAP NG SCH ×2 (09:36→21:44)
[2019-12-03] MEDS: CARVEDILOL 3.125 MG TAB NG SCH ×2 (09:36→21:45)
[2019-12-03] MEDS: ENOXAPARIN SOD 40 MG/0.4 ML SYRINGE SC SCH (09:37)
[2019-12-03] MEDS: ERTAPENEM SOD INJ 1 GM in SODIUM CHL 0.9% 50 ML IV SCH (09:47)
[2019-12-03] MEDS ORDERED: predniSONE 20 MG TAB PO SCH (10:00)
[2019-12-03] MEDS ORDERED: PANTOPRAZOLE 40 MG/10 ML VIAL INJ IV SCH (10:00)
--- NOTE | 2019-12-03 10:29 | NUR ---
Dr Fuentes at Bedside MD to see pt. Will continue to monitor.
--- NOTE | 2019-12-03 10:44 | NUR ---
RT NOTE: PT. REFUSED MED NEB TX. AT THIS TIME. PT. STATES HE DOESN'T KNOW IF HE NEEDS. I EDUCATED ON THE TX. AND HE DECLINED ANYWAY AND FELT HE DOESN'T NEED IT AT THIS TIME. PT. ADVISED NEXT SCHEDULED TX. IS AT 1400 AND TO NOTIFY RN IF BREATHING TX. IS NEEDED PRIOR. PT. VERBALIZED UNDERSTANDING.
[2019-12-03] MEDS ORDERED: DOXYCYCLINE 100 MG TAB/CAP PO ONE (10:45)
--- NOTE | 2019-12-03 11:05 | NUR ---
IV Insertion 20 G to pt's R FA inserted using clean/sterile technique. One attempt made. Pt tolerated insertion well. Iv is patent and flushes easily.
--- NOTE | 2019-12-03 11:05 | NUR ---
R IJ Line Removed R IJ line removed per MD's request. Pt placed in Trendelenburg for removal and instructed to take a deep breath out upon removal. Sterile technique used upon d/c. Site is asymptomatic. Pt tolerated removal well. Pressure was applied to site for 3 minutes with gauze and then pressure dressing applied. Pt instructed to keep dressing on for 1 HR; pt verbalized understanding. Will continue to monitor site.
--- NOTE | 2019-12-03 14:47 | NUR ---
RT NOTE: PT. REFUSED BREATHING TX. AT THIS TIME. PT. DENIES ANY SOB. NO S/S OF RESPIRATORY DISTRESS NOTED. PT. ADVISED TO NOTIFY RN IF BREATHING TX. IS NEEDED, PT. VERBALIZED UNDERSTANDING.
[2019-12-03] MEDS: ACETAMINOPHEN 325 MG TAB PO PRN ×2 (15:15→21:51)
--- NOTE | 2019-12-03 15:26 | NUR ---
Dr Villarreal at Bedside MD to see pt. No new orders at this time.
--- NOTE | 2019-12-03 18:35 | NUR ---
Respiratory note: MED NEB TX STOPPED JAIL DUE TO PT COMPLAINING OF DISCOMFORT PT STATED "THIS IS NOT WORKING FOR ME" AND "WHAT CORRECTION OFFICER HEAD IS HERE RIGHT NOW? CAN I HAVE SOMEONE CHECK ME OUT" PT HAS HAND ON CHEST EXPRESSING THIS IS THE ARE WHERE HE FEELS DISCOMFORT. PT ALSO REFUSING FUTURE MED NEB TXS DUE TO THIS INCIDENT. COMMUNICATED TO MARICARMEN GARCIA OF PTS COMPLAINTS. RT NAME AND PAGER ASSIGNMENT WRITTEN ON PTS ROOM BOARD, WILL CONTINUE TO MONITOR.
--- NOTE | 2019-12-03 18:43 | NUR ---
Pt Requested to Stop RT Treatment Roosevelt Per RT, pt states that he did not wish to continue with the treatment due to some chest discomfort. RT stopped treatment and notified me. Assessed pt, pt currently states that he does not have any chest pain at this time, but stated that he wax experiencing some discomfort during the treatment. Pt is currently asymptomatic and shows no s/s of distress. Discussed available medications for comfort; pt states that he does not wish to have the morphine and the tylenol "does not work for [him]". Will continue to monitor.
[2019-12-03] MEDS: DOXYCYCLINE 100 MG TAB/CAP PO SCH (21:45)
--- NOTE | 2019-12-03 21:52 | NUR ---
Patient complained of a 7 of 10 abdominal pain. Patient stated he does not want to take Morphine. Patient educated about pain medication. Will continue to monitor.
[2019-12-04 02:00] VITALS: BP 109/71
[2019-12-04] MEDS: IPRATROPIUM BROM 0.5 MG/2.5ML INH SOL NEB SCH ×2 (02:00→06:59)
[2019-12-04] MEDS: ALBUTEROL SULF 2.5 MG/0.5ML(0.5%) NEB SOLN NEB SCH ×2 (02:00→06:59)
[2019-12-04 05:00] VITALS: BP 113/72
[2019-12-04 05:50] LABS: Basophils # (auto) 0 10 ^3/uL (0-0.2); Basophils % (auto) 0.2 % (0.0-2.0); Eosinophils # (auto) 0 10 ^3/uL (0-0.8); Hematocrit 38.4 % (41.0-53.0); Hemoglobin 12.8 g/dL (13.5-17.5); Lymphocytes # (auto) 1.7 10 ^3/uL (0.4-5.4); Lymphocytes % (auto) 11.6 % (10.0-50.0); Mean Corpuscular Hemoglobin 29.4 pg (28.0-32.0); Mean Corpuscular Hgb Conc. 33.3 g/dL (32.0-36.0); Mean Corpuscular Volume 88.2 fL (80.0-100.0); Monocytes # (auto) 0.6 10 ^3/uL (0-1.3); Monocytes % (auto) 4.1 % (0.0-12.0); Neutrophils # (auto) 12.3 10 ^3/uL (1.6-8.6); Neutrophils % (auto) 84.1 % (37.0-80.0); Platelet Count (auto) 531 10^3/uL (140-450); Red Blood Cells 4.36 10^6/uL (4.5-5.90); Red Cell Distribution Width 14.7 % (11.8-14.3); White Blood Cell 14.6 10^3/uL (4.4-10.8)
[2019-12-04 06:01] LABS: Calcium 9.7 mg/dL (8.5-10.1); Potassium 4.4 mmol/L (3.5-5.1)
[2019-12-04 06:03] LABS: BUN/Creatinine Ratio 34.5
--- NOTE | 2019-12-04 06:59 | NUR ---
Respiratory note: SCHEDULED MED NEB TX NOT GIVEN . PT WAS AWAKE AND ALERT, NO RESP DISTRESS NOTED. PT STATED HE DID NOT WANT TO TAKE BREATHING TX'S BECAUSE THEY MAKE HIS CHEST HURT. HR 65, RR 18, SPO2 100% ON ROOM AIR . BS ARE CLEAR .
[2019-12-04 09:00] VITALS: BP 126/72
[2019-12-04] MEDS: methylPREDNISolone SOD SUCC 40 MG/ML VL IV SCH (10:12)
[2019-12-04] MEDS: COLCHICINE 0.6 MG CAP NG SCH ×2 (10:12→21:46)
[2019-12-04] MEDS: CARVEDILOL 3.125 MG TAB NG SCH ×2 (10:12→21:46)
[2019-12-04] MEDS: ALLOPURINOL 100 MG TAB NG SCH ×2 (10:13→21:46)
[2019-12-04] MEDS: DOXYCYCLINE 100 MG TAB/CAP PO SCH ×2 (10:13→21:46)
[2019-12-04] MEDS: FUROSEMIDE 40 MG TAB PO SCH (10:13)
[2019-12-04] MEDS: POTASSIUM CHL 20 Meq TABLET PO SCH (10:13)
[2019-12-04] MEDS ORDERED: HYDROcodone-ACET 5/325MG TAB PO PRN (11:15)
[2019-12-04 13:00] VITALS: BP 110/66
--- NOTE | 2019-12-04 15:29 | NUR ---
assessment Patient is a 24 year old male who is alert and oriented. Patients cognitive abilities are intact. Prior to admission patient lived home with family and functioned independently. Patient informed me he is able to care for his own ADLs. Per patient he will return home to his prior living arrangements post discharge and family will transport him home. Patient has no post discharge needs identified. I informed patient he has a right to speak to a social welfare administrator regarding all care. I informed patient he has a right to participate in any and all discharge planning. Patient does not have a POA and advanced directive. I have offered patient information on POA and advanced directives. I informed the patient the advantages and benefits of having an Advanced Directive. Patient accepted advanced directive. Patient informed me that if he could not make decisions then his jill Barber and her mother Ijeoma Lilly would be the ones to make decisions. Patient verbalized understanding and agreed to discharge plan. Addendum: 12/04/19 at 1541 by Oliva PIERRE Amended: Links added.
[2019-12-04 17:00] VITALS: BP 125/63
--- NOTE | 2019-12-04 19:30 | NUR ---
Opening Shift Note Assumed care of patient, awake and alert. No S/S of distress/SOB or pain. Family at bedside. Instructed on POC and to call for assist PRN, will continue to monitor for changes Q1hr and PRN.
[2019-12-04 22:00] VITALS: BP 109/69
[2019-12-05 05:00] VITALS: BP 102/65
[2019-12-05 09:00] VITALS: BP 115/68
[2019-12-05] MEDS: COLCHICINE 0.6 MG CAP NG SCH (09:50)
[2019-12-05] MEDS: DOXYCYCLINE 100 MG TAB/CAP PO SCH (09:50)
[2019-12-05] MEDS: FUROSEMIDE 40 MG TAB PO SCH (09:51)
[2019-12-05] MEDS: POTASSIUM CHL 20 Meq TABLET PO SCH (09:51)
[2019-12-05] MEDS: ALLOPURINOL 100 MG TAB NG SCH (09:53)
[2019-12-05] MEDS: CARVEDILOL 3.125 MG TAB NG SCH (10:00)
[2019-12-05] MEDS ORDERED: predniSONE 20 MG TAB PO SCH (10:00)
[2019-12-05 13:00] VITALS: BP 109/63
[2019-12-05 15:29] VITALS: BP 115/68
--- NOTE | 2019-12-05 16:00 | NUR ---
Discharge instructions given as ordered. Encourage to follow up with PMD as instructed. All questions and concerns addressed. Patient verbalized understanding. Medication reconciliation form completed and copy given to patient. IV removed with catheter intact, pressure dressing applied. Telemetry unit returned to ICU. Patient taken to vehicle via wheelchair with all personal belongings, accompanied by staff and family member. No distress noted at time of departure. DISCHARGE
== END 2019-12-05 16:00 | disposition home or self-care (01) | DRG 208 ==
LOC: ER 20:26 → TELE 20:27 → ICU WEST 11-30 08:04 → TELE-CENTR 12-02 23:55
PROVIDERS: ADMIT Hospitalist; ATTEND Internal Medicine
PROC: 5A1945Z Respiratory Ventilation, 24-96 Consecutive Hours (ICD-10-PCS; principal; 2019-11-30)
PROC: 0BH17EZ Insertion of Endotracheal Airway into Trachea, Via Natural or Artificial Opening (ICD-10-PCS; 2019-11-30)
PROC: 02H633Z Insertion of Infusion Device into Right Atrium, Percutaneous Approach (ICD-10-PCS; 2019-11-30)
PROC: B548ZZA Ultrasonography of Superior Vena Cava, Guidance (ICD-10-PCS; 2019-11-30)
DX: J96.01 Acute respiratory failure with hypoxia (principal); J18.9 Pneumonia, unspecified organism; I50.21 Acute systolic (congestive) heart failure; I31.3 Pericardial effusion (noninflammatory); I95.9 Hypotension, unspecified; I51.4 Myocarditis, unspecified; D72.829 Elevated white blood cell count, unspecified; R73.9 Hyperglycemia, unspecified; D64.9 Anemia, unspecified; Z83.3 Family history of diabetes mellitus; Z82.49 Family history of ischemic heart disease and other diseases of the circulatory system; Z80.9 Family history of malignant neoplasm, unspecified; Z79.899 Other long term (current) drug therapy
CPT/HCPCS: 31500; 36415; 36600; 51702; 71045; 80048; 80053; 80307; 81001; 82085; 82550; 82805; 82962; 83516; 83735; 83880; 84100; 84443; 84484; 85025; 85610; 85652; 85730; 86141; 86225; 86235; 86803; 87040; 87070; 87081; 87086; 87205; 87340; 87804; 93005; 93306; 93970; 94002; 94003; 94640; 96374; 96375; C9113; G0378; J1335; J1815; J1956; J2250; J2405; J2704; J7060

== ENCOUNTER 2019-12-23 09:29 | Inpatient (IN) | payer MEDICAID, OTHER ==
[~2019-12-23] VITALS: Ht 185.4 cm; Wt 75.8 kg
[2019-12-23 10:13] LABS: Basophils # (auto) 0.1 10 ^3/uL (0-0.2); Basophils % (auto) 0.6 % (0.0-2.0); Eosinophils # (auto) 0 10 ^3/uL (0-0.8); Eosinophils % (auto) 0.4 % (0.0-7.0); Hematocrit 46.4 % (41.0-53.0); Hemoglobin 15.9 g/dL (13.5-17.5); Lymphocytes # (auto) 1.7 10 ^3/uL (0.4-5.4); Lymphocytes % (auto) 18.3 % (10.0-50.0); Mean Corpuscular Hemoglobin 30.5 pg (28.0-32.0); Mean Corpuscular Hgb Conc. 34.2 g/dL (32.0-36.0); Mean Corpuscular Volume 89.1 fL (80.0-100.0); Monocytes # (auto) 1.4 10 ^3/uL (0-1.3); Neutrophils # (auto) 6.2 10 ^3/uL (1.6-8.6); Neutrophils % (auto) 65.7 % (37.0-80.0); Nucleated Red Blood Cells % 0.1 %; Platelet Count (auto) 155 10^3/uL (140-450); Red Blood Cells 5.21 10^6/uL (4.5-5.90); Red Cell Distribution Width 17.2 % (11.8-14.3); White Blood Cell 9.5 10^3/uL (4.4-10.8)
[2019-12-23] MEDS ORDERED: ASPirin 81 mg TAB PO ONE (10:15)
[2019-12-23 10:26] LABS: Albumin 3.6 g/dL (3.4-5.0); Calcium 9.2 mg/dL (8.5-10.1); Magnesium 2.3 mg/dL (1.6-2.6); Potassium 4.1 mmol/L (3.5-5.1)
[2019-12-23 10:30] LABS: BUN/Creatinine Ratio 10.3; Bilirubin, Total 0.9 mg/dL (0.2-1.0); Total Protein 7.7 g/dL (6.4-8.2)
[2019-12-23] MEDS ORDERED: methylPREDNISolone SOD SUCC 125 MG/2 ML VL IV ONE (10:30)
[2019-12-23] MEDS ORDERED: SODIUM CHLORIDE 0.9% 1,000 ML IV ONE (10:30)
[2019-12-23] MEDS ORDERED: ONDANSETRON HCL 4 MG/2 ML VIAL IV PRN (13:00)
[2019-12-23] MEDS ORDERED: NITROGLYCERIN 0.4 MG SL TAB SL PRN (13:00)
[2019-12-23] MEDS ORDERED: MORPHINE SULF INJ 2 MG/ML SYRINGE 1ML IV PRN ×2 (13:00)
[2019-12-23] MEDS ORDERED: HYDROcodone-ACET 5/325MG TAB PO PRN (13:00)
[2019-12-23] MEDS ORDERED: KETOROLAC TROMETH 15 mg/ml 1ML VL IV ONE (13:00)
[2019-12-23] MEDS ORDERED: ACETAMINOPHEN 500 MG TAB PO PRN (13:00)
[2019-12-23] MEDS ORDERED: KETOROLAC TROMETH 30 MG/ML 1ML VIAL IV ONE (14:00)
[2019-12-23] MEDS ORDERED: PRED20TA2 PO (15:22)
[2019-12-23] MEDS ORDERED: COLC1TAB3 PO (15:22)
[2019-12-23] MEDS ORDERED: LISI-275 PO (15:22)
[2019-12-23] MEDS ORDERED: FURO1TAB33 PO (15:22)
[2019-12-23] MEDS ORDERED: predniSONE 5 MG TAB PO ONE (16:15)
[2019-12-23] MEDS ORDERED: IBUPROFEN 600 MG TAB PO ONE (16:15)
[2019-12-23 17:27] VITALS: BP 121/73
[2019-12-23 22:00] VITALS: BP 110/65
[2019-12-23] MEDS: COLCHICINE 0.6 MG CAP PO SCH (22:49)
[2019-12-23] MEDS: METOPROLOL TARTRATE 25 MG TAB PO SCH (22:49)
[2019-12-23] MEDS: IBUPROFEN 600 MG TAB PO SCH (22:49)
[2019-12-24 05:00] VITALS: BP 106/68
[2019-12-24] MEDS: IBUPROFEN 600 MG TAB PO SCH ×3 (06:21→23:13)
[2019-12-24 06:28] LABS: Calcium 9.1 mg/dL (8.5-10.1); Potassium 5.1 mmol/L (3.5-5.1)
[2019-12-24 06:32] LABS: BUN/Creatinine Ratio 21.5
[2019-12-24 08:55] VITALS: BP 106/69
[2019-12-24] MEDS: LOSARTAN POTASSIUM 25 MG TAB PO SCH (09:51)
[2019-12-24] MEDS: predniSONE 5 MG TAB PO SCH (09:51)
[2019-12-24] MEDS: COLCHICINE 0.6 MG CAP PO SCH ×2 (09:51→23:13)
[2019-12-24] MEDS ORDERED: PANTOPRAZOLE 40 MG TAB PO SCH (10:00)
[2019-12-24] MEDS ORDERED: FAMOTIDINE 20 MG TAB PO SCH (10:00)
[2019-12-24] MEDS: METOPROLOL TARTRATE 25 MG TAB PO SCH (10:06)
[2019-12-24 10:28] LABS: Basophils # (auto) 0 10 ^3/uL (0-0.2); Basophils % (auto) 0.1 % (0.0-2.0); Eosinophils # (auto) 0 10 ^3/uL (0-0.8); Eosinophils % (auto) 0.1 % (0.0-7.0); Hematocrit 44.7 % (41.0-53.0); Hemoglobin 14.7 g/dL (13.5-17.5); Lymphocytes % (auto) 4.5 % (10.0-50.0); Mean Corpuscular Hemoglobin 29.2 pg (28.0-32.0); Mean Corpuscular Hgb Conc. 32.8 g/dL (32.0-36.0); Mean Corpuscular Volume 89.1 fL (80.0-100.0); Monocytes # (auto) 1.8 10 ^3/uL (0-1.3); Monocytes % (auto) 7.8 % (0.0-12.0); Neutrophils # (auto) 20.1 10 ^3/uL (1.6-8.6); Neutrophils % (auto) 87.5 % (37.0-80.0); Platelet Count (auto) 162 10^3/uL (140-450); Red Blood Cells 5.01 10^6/uL (4.5-5.90); Red Cell Distribution Width 17.5 % (11.8-14.3); White Blood Cell 22.9 10^3/uL (4.4-10.8)
[2019-12-24 12:52] VITALS: BP 110/71
[2019-12-24 16:51] VITALS: BP 98/55
[2019-12-24 22:00] VITALS: BP 99/58
[2019-12-25 05:00] VITALS: BP 94/51
[2019-12-25 05:18] LABS: Basophils # (auto) 0 10 ^3/uL (0-0.2); Basophils % (auto) 0.3 % (0.0-2.0); Eosinophils # (auto) 0 10 ^3/uL (0-0.8); Eosinophils % (auto) 0.2 % (0.0-7.0); Hematocrit 40.1 % (41.0-53.0); Hemoglobin 13.3 g/dL (13.5-17.5); Lymphocytes # (auto) 2.7 10 ^3/uL (0.4-5.4); Lymphocytes % (auto) 21.2 % (10.0-50.0); Mean Corpuscular Hgb Conc. 33.3 g/dL (32.0-36.0); Mean Corpuscular Volume 90.1 fL (80.0-100.0); Neutrophils # (auto) 9.1 10 ^3/uL (1.6-8.6); Neutrophils % (auto) 70.3 % (37.0-80.0); Platelet Count (auto) 130 10^3/uL (140-450); Red Blood Cells 4.45 10^6/uL (4.5-5.90); Red Cell Distribution Width 17.8 % (11.8-14.3)
[2019-12-25] MEDS: IBUPROFEN 600 MG TAB PO SCH ×2 (06:16→14:06)
[2019-12-25 08:54] VITALS: BP 105/51
[2019-12-25] MEDS: LOSARTAN POTASSIUM 25 MG TAB PO SCH (09:41)
[2019-12-25] MEDS: predniSONE 5 MG TAB PO SCH (09:41)
[2019-12-25] MEDS: COLCHICINE 0.6 MG CAP PO SCH (09:41)
[2019-12-25 13:00] VITALS: BP 116/68
[2019-12-25 16:36] VITALS: BP 113/69
== END 2019-12-25 17:34 | disposition home or self-care (01) | DRG 207 ==
LOC: ER 09:29 → TELE 09:30 → TELE-CENTR 14:05
PROVIDERS: ADMIT Nurse Practitioner Acute Care; ATTEND Internal Medicine
DX: I30.9 Acute pericarditis, unspecified (principal); I50.42 Chronic combined systolic (congestive) and diastolic (congestive) heart failure; Z91.19 Patient's noncompliance with other medical treatment and regimen; Z82.49 Family history of ischemic heart disease and other diseases of the circulatory system; Z83.3 Family history of diabetes mellitus; Z80.9 Family history of malignant neoplasm, unspecified; Z82.0 Family history of epilepsy and other diseases of the nervous system; Z79.899 Other long term (current) drug therapy
CPT/HCPCS: 36415; 71046; 80048; 80053; 83605; 83735; 84443; 84484; 85025; 86141; 87040; 87081; 93005; G0378; J1885

== ENCOUNTER → 2020-01-27 | Outpatient (CLI) | payer MEDICAID ==
[~2020-01-27] MED LIST: COLC1TAB3 PO; FURO1TAB33 PO; LISI-275 PO; PRED20TA2 PO
== END | disposition home or self-care (01) ==
LOC: Rad HDHVI 10:49
PROVIDERS: ATTEND Internal Medicine
DX: I07.1 Rheumatic tricuspid insufficiency (principal); I50.9 Heart failure, unspecified; I42.9 Cardiomyopathy, unspecified; Z86.79 Personal history of other diseases of the circulatory system
CPT/HCPCS: 93306

== ENCOUNTER → 2020-07-06 | Outpatient (CLI) | payer MEDICAID | END | disposition home or self-care (01) | LOC: Rad HDHVI 10:51 | PROVIDERS: ATTEND Internal Medicine | DX: I07.1 Rheumatic tricuspid insufficiency (principal); I42.9 Cardiomyopathy, unspecified; I31.9 Disease of pericardium, unspecified | CPT/HCPCS: 93306 ==

== ENCOUNTER 2021-09-20 17:19 | Emergency (ER) | payer MEDICAID ==
[~2021-09-20] VITALS: Ht 185.4 cm; Wt 79.4 kg
[2021-09-20 17:24] VITALS: BP 115/91
== END 2021-09-20 21:58 | disposition home or self-care (01) ==
LOC: ER 17:19
DX: R06.02 Shortness of breath (principal); R53.83 Other fatigue; I50.9 Heart failure, unspecified; Z20.822 Contact with and (suspected) exposure to COVID-19
CPT/HCPCS: 36415; 71046; 87426; 93005

== ENCOUNTER → 2021-11-02 | Outpatient (CLI) | payer MEDICAID | END | disposition home or self-care (01) | LOC: Rad HDHVI 09:52 | PROVIDERS: ATTEND Internal Medicine | DX: I11.0 Hypertensive heart disease with heart failure (principal); I50.9 Heart failure, unspecified; I36.1 Nonrheumatic tricuspid (valve) insufficiency | CPT/HCPCS: 93306 ==

== ENCOUNTER → 2021-12-01 | Outpatient (CLI) | payer MEDICAID ==
[~2021-12-01] MED LIST changes: +ALBUTEROL SULF 2.5 MG/0.5ML(0.5%) NEB SOLN ONE
== END | disposition home or self-care (01) ==
LOC: RT 09:34
PROVIDERS: ATTEND Internal Medicine Pulmonary Disease
DX: J45.909 Unspecified asthma, uncomplicated (principal); Z20.822 Contact with and (suspected) exposure to COVID-19
CPT/HCPCS: 36415; 94060; 94727; 94729

== ENCOUNTER → 2022-01-24 | Outpatient (CLI) | payer MEDICAID ==
[~2022-01-24] VITALS: Ht 188 cm; Wt 90.7 kg
[~2022-01-24] MED LIST changes: +ADENOSINE 76 MG in GIVE UN-DILUTED 0 ML IV ONE; +ADENOSINE 90 MG/30 ML INJ IV ONE; -ALBUTEROL SULF 2.5 MG/0.5ML(0.5%) NEB SOLN ONE
== END | disposition home or self-care (01) ==
LOC: Rad HDHVI 13:38
PROVIDERS: ATTEND Internal Medicine
DX: I11.0 Hypertensive heart disease with heart failure (principal); I50.42 Chronic combined systolic (congestive) and diastolic (congestive) heart failure; R07.9 Chest pain, unspecified; E78.5 Hyperlipidemia, unspecified; I31.9 Disease of pericardium, unspecified; I42.9 Cardiomyopathy, unspecified
CPT/HCPCS: 78452; 93005; 96374; 96375; A9500; J0153

== ENCOUNTER 2023-03-28 13:40 | Inpatient (IN) | payer MEDICAID ==
[~2023-03-28] VITALS: Ht 185.4 cm; Wt 93.7 kg
[~2023-03-28 13:40] MED LIST changes: -ADENOSINE 76 MG in GIVE UN-DILUTED 0 ML IV ONE; -ADENOSINE 90 MG/30 ML INJ IV ONE
[2023-03-28 14:09] LABS: Basophils # (auto) 0 10 ^3/uL (0-0.2); Basophils % (auto) 0.5 % (0.0-2.0); Eosinophils # (auto) 0 10 ^3/uL (0-0.8); Eosinophils % (auto) 0.9 % (0.0-7.0); Hematocrit 46.5 % (41.0-53.0); Hemoglobin 15.6 g/dL (13.5-17.5); Lymphocytes # (auto) 2.7 10 ^3/uL (0.4-5.4); Lymphocytes % (auto) 50.4 % (10.0-50.0); Mean Corpuscular Hemoglobin 30.5 pg (28.0-32.0); Mean Corpuscular Hgb Conc. 33.6 g/dL (32.0-36.0); Mean Corpuscular Volume 90.6 fL (80.0-100.0); Monocytes # (auto) 0.5 10 ^3/uL (0-1.3); Monocytes % (auto) 8.7 % (0.0-12.0); Neutrophils # (auto) 2.1 10 ^3/uL (1.6-8.6); Neutrophils % (auto) 39.5 % (37.0-80.0); Nucleated Red Blood Cells % 0.2 %; Red Blood Cells 5.13 10^6/uL (4.5-5.90); Red Cell Distribution Width 12.8 % (11.8-14.3); White Blood Cell 5.4 10^3/uL (4.4-10.8)
[2023-03-28 14:25] LABS: Calcium 8.8 mg/dL (8.5-10.1); INR 1.07 (0.9-1.15); Magnesium 2.3 mg/dL (1.6-2.6); Partial Thromboplastin Time 30.3 SEC (24.5-34.5)
[2023-03-28 14:32] LABS: BUN/Creatinine Ratio 9.8 (10.0-20.0); Bilirubin, Total 0.7 mg/dL (0.2-1.0); Total Protein 7.1 g/dL (6.4-8.2)
[2023-03-28] MEDS ORDERED: NITROGLYCERIN 0.4 MG SL TAB SL PRN (16:15)
[2023-03-28] MEDS ORDERED: MORPHINE SULFATE INJ 2 MG/ml SYRG IV PRN (16:15)
[2023-03-28] MEDS ORDERED: predniSONE 20 MG TAB PO ONE (16:45)
[2023-03-28] MEDS ORDERED: IPRATROPIUM BROM 0.5 MG/2.5ML INH SOL NEB PRN (16:45)
[2023-03-28] MEDS ORDERED: ALBUTEROL SULF 2.5 MG/0.5ML(0.5%) NEB SOLN NEB PRN (16:45)
[2023-03-28] MEDS: COLCHICINE 0.6 MG CAP PO SCH (23:03)
[2023-03-28 23:14] LABS: Urine Bacteria NONE SEEN /hpf (None Seen); Urine Blood Negative /uL (Negative); Urine Mucus FEW (None Seen); Urine WBC 1 /hpf (0 - 3)
[2023-03-28 23:26] LABS: Alcohol, Urine < 3.0 mg/dL (0-10); Amphetamine Screen, Urine NEGATIVE (NEGATIVE); Barbiturate Scree,Urine NEGATIVE (NEGATIVE); Benzodiazephine Screen, Urine NEGATIVE (NEGATIVE); Cannabinoid Screen, Urine NEGATIVE (NEGATIVE); Cocaine Screen, Urine NEGATIVE (NEGATIVE); Opiate Scree,Urine NEGATIVE (NEGATIVE); Phencyclidine Screen, Urine NEGATIVE (NEGATIVE)
[2023-03-29] VITALS (9 sets, daily range): BP systolic 109–116; BP diastolic 60–75
[2023-03-29 07:21] LABS: Basophils # (auto) 0 10 ^3/uL (0-0.2); Basophils % (auto) 0.3 % (0.0-2.0); Eosinophils # (auto) 0 10 ^3/uL (0-0.8); Eosinophils % (auto) 0.1 % (0.0-7.0); Hematocrit 43.5 % (41.0-53.0); Hemoglobin 14.9 g/dL (13.5-17.5); Lymphocytes % (auto) 28.3 % (10.0-50.0); Mean Corpuscular Hemoglobin 30.9 pg (28.0-32.0); Mean Corpuscular Hgb Conc. 34.2 g/dL (32.0-36.0); Mean Corpuscular Volume 90.2 fL (80.0-100.0); Monocytes # (auto) 0.5 10 ^3/uL (0-1.3); Monocytes % (auto) 7.5 % (0.0-12.0); Neutrophils # (auto) 4.6 10 ^3/uL (1.6-8.6); Neutrophils % (auto) 63.8 % (37.0-80.0); Nucleated Red Blood Cells % 0.2 %; Red Blood Cells 4.82 10^6/uL (4.5-5.90); Red Cell Distribution Width 12.9 % (11.8-14.3); White Blood Cell 7.2 10^3/uL (4.4-10.8)
[2023-03-29 07:47] LABS: Albumin 3.5 g/dL (3.4-5.0); Potassium 4.4 mmol/L (3.5-5.1)
[2023-03-29 07:50] LABS: BUN/Creatinine Ratio 10.2 (10.0-20.0); Bilirubin, Total 0.5 mg/dL (0.2-1.0); Total Protein 7.2 g/dL (6.4-8.2)
[2023-03-29] MEDS: predniSONE 20 MG TAB PO SCH (10:00)
[2023-03-29] MEDS: PANTOPRAZOLE 40 MG TAB PO SCH (10:00)
[2023-03-29] MEDS: COLCHICINE 0.6 MG CAP PO SCH ×2 (10:00→20:18)
[2023-03-30 05:00] VITALS: BP 109/69
[2023-03-30 08:00] VITALS: BP 115/73
[2023-03-30] MEDS: PANTOPRAZOLE 40 MG TAB PO SCH (08:29)
[2023-03-30] MEDS: COLCHICINE 0.6 MG CAP PO SCH (08:30)
[2023-03-30] MEDS: predniSONE 20 MG TAB PO SCH (08:30)
[2023-03-30 08:43] VITALS: BP 115/73
[2023-03-30 13:00] VITALS: BP 120/78
[2023-03-30 13:59] VITALS: BP 115/73
== END 2023-03-30 15:58 | disposition home or self-care (01) | DRG 207 ==
LOC: ER 13:40 → TELE 16:08 → TELE-WESTW 23:43
PROVIDERS: ADMIT Nurse Practitioner Family; ATTEND Family Medicine
DX: I30.9 Acute pericarditis, unspecified (principal); I50.9 Heart failure, unspecified; R07.89 Other chest pain; I31.9 Disease of pericardium, unspecified
CPT/HCPCS: 36415; 71045; 80053; 80061; 80307; 81001; 83036; 83735; 83880; 84443; 84484; 85025; 85610; 85652; 85730; 86141; 93005; 93306; G0378

== ENCOUNTER 2023-08-22 10:21 | Emergency (ER) | payer MEDICAID ==
[~2023-08-22] VITALS: Ht 185.4 cm; Wt 90.9 kg
[2023-08-22 10:43] VITALS: BP 138/94; PULSE 85; RESP 18; TEMP 98.6; O2SAT 100
[2023-08-22 12:20] LABS: Rapid Influenza A Negative (Negative); Rapid Influenza B Negative (Negative); Rapid Strep A Screen-Throat Negative
[2023-08-22 12:21] LABS: COVID19 ANTIGEN SOFIA FIA NEGATIVE (NEGATIVE)
[2023-08-22] MEDS ORDERED: ACET500T58 PO (12:42)
[2023-08-22] MEDS ORDERED: BENZ100C97 PO (12:42)
[2023-08-22] MEDS ORDERED: LORA10CA PO (12:42)
== END 2023-08-22 12:57 | disposition home or self-care (01) ==
LOC: ER 10:21
DX: J39.8 Other specified diseases of upper respiratory tract (principal); Z79.899 Other long term (current) drug therapy; Z20.822 Contact with and (suspected) exposure to COVID-19
CPT/HCPCS: 36415; 71046; 87070; 87426; 87804; 87880